=== PATIENT | female | born 1990 | race Caucasian/White ===

== ENCOUNTER 2017-06-26 17:38 | Emergency (ER) | payer SELFPAY ==
[~2017-06-26] VITALS: Ht 149.9 cm; Wt 60.9 kg
[2017-06-26] MEDS ORDERED: PNV11TAB5 PO (17:47)
[2017-06-26] MEDS ORDERED: HYDR250V7 IM (17:47)
[2017-06-26 20:36] LABS: BASOPHILS % (AUTO) 0.7 % (0.0-2.0); EOSINOPHILS % (AUTO) 1.6 % (1.0-6.0); HEMATOCRIT 35.7 % (36-46); HEMOGLOBIN 12.1 g/dL (12.0-16.0); LYMPHOCYTES # (AUTO) 2.4 K/uL (1.0-4.8); MEAN CORPUSCULAR HEMOGLOBIN 31.9 pg (26.0-34.0); MEAN CORPUSCULAR HGB CONC 33.8 G/dL (31.0-37.0); MEAN CORPUSCULAR VOLUME 94 fL (80-100); MONOCYTES # (AUTO) 0.7 K/uL (0.1-1.0); MONOCYTES % (AUTO) 7.3 % (2.0-9.0); NEUTROPHILS # (AUTO) 6.6 K/uL (1.8-7.7); NEUTROPHILS % (AUTO) 66.4 % (40.0-70.0); PLATELET COUNT (AUTO) 232 K/uL (150-450); RED BLOOD CELL COUNT(AUTO) 3.79 MIL/uL (4.00-5.20); RED CELL DISTRIBUTION WIDTH 13.3 % (11.5-14.5); WHITE BLOOD COUNT (AUTO) 9.9 K/uL (4.5-11.0)
[2017-06-26 20:42] LABS: ANION GAP 10 mmol/L (8-16); CALCIUM, TOTAL 8.5 mg/dL (8.8-10.5); CARBON DIOXIDE 25 mmol/L (22-29); CHLORIDE 102 mmol/L (98-107); CREATININE 0.47 mg/dL (0.60-1.30); GLOMERULAR FILTR. RATE CALC > 60 mL/min (>60); POTASSIUM 3.5 mmol/L (3.5-5.1); SODIUM SERUM 137 mmol/L (136-145); UREA NITROGEN, BLOOD 7 mg/dL (7-18)
[2017-06-26 20:43] LABS: APPEARANCE,URINE CLOUDY (CLEAR); GLUCOSE, URINE (UA) NEGATIVE (NEGATIVE); KETONES,URINE TRACE mg/dL (NEGATIVE); OCCULT BLOOD,URINE TRACE (NEGATIVE); PROTEIN,URINE NEGATIVE (NEGATIVE)
[2017-06-26 20:46] LABS: LEUKOCYTE ESTERASE ,URINE MODERATE (NEGATIVE)
[2017-06-26 20:47] LABS: SQUAMOUS EPITHELIAL CELL,UR Many /LPF (None Seen)
[2017-06-26 21:50] VITALS: BP 101/66
== END 2017-06-26 22:19 | disposition home or self-care (01) ==
LOC: EMS 17:39
DX: O26.892 Other specified pregnancy related conditions, second trimester (principal); R10.9 Unspecified abdominal pain; O99.332 Smoking (tobacco) complicating pregnancy, second trimester; F17.210 Nicotine dependence, cigarettes, uncomplicated; Z3A.18 18 weeks gestation of pregnancy
CPT/HCPCS: 87086; 99284

== ENCOUNTER 2017-10-05 23:08 | Observation (INO) | payer SELFPAY ==
[~2017-10-05] VITALS: Ht 152.4 cm; Wt 65.8 kg
[~2017-10-05 23:08] MED LIST: HYDR250V7 IM; PNV11TAB5 PO
[2017-10-06 00:35] VITALS: BP 89/50
[2017-10-06] MEDS ORDERED: RINGERS SOLUTION,LACTATED 1,000 ML IV ONE (01:00)
[2017-10-06] MEDS ORDERED: RINGERS SOLUTION,LACTATED 1,000 ML IV SCH (01:00)
[2017-10-06 01:25] LABS: APPEARANCE,URINE CLEAR (CLEAR); GLUCOSE, URINE (UA) NEGATIVE (NEGATIVE); KETONES,URINE NEGATIVE (NEGATIVE); LEUKOCYTE ESTERASE ,URINE MODERATE (NEGATIVE); OCCULT BLOOD,URINE MODERATE (NEGATIVE); PH,URINE 6.5 (5.0-8.0); PROTEIN,URINE NEGATIVE (NEGATIVE)
[2017-10-06 01:39] LABS: SQUAMOUS EPITHELIAL CELL,UR Few /LPF (None Seen)
== END 2017-10-06 04:33 | disposition home or self-care (01) ==
LOC: 4S 23:08
PROVIDERS: ADMIT Obstetrics & Gynecology; ATTEND Obstetrics & Gynecology
DX: O26.893 Other specified pregnancy related conditions, third trimester (principal); O99.013 Anemia complicating pregnancy, third trimester; M54.9 Dorsalgia, unspecified; R10.9 Unspecified abdominal pain; Z3A.32 32 weeks gestation of pregnancy
CPT/HCPCS: 80307 ×8; 81001; 82731; 96360; 96361; G0378 ×2; J7120

== ENCOUNTER 2021-11-15 00:38 | Emergency (ER) | payer SELFPAY ==
[~2021-11-15] VITALS: Ht 149.9 cm; Wt 60.9 kg
[2021-11-15 01:12] LABS: COVID AG,FIA SOURCE NASOPHARYNGEAL
[2021-11-15 03:14] VITALS: BP 105/60
== END 2021-11-15 03:15 | disposition home or self-care (01) ==
LOC: EMS 00:39
DX: J06.9 Acute upper respiratory infection, unspecified (principal); Z20.822 Contact with and (suspected) exposure to COVID-19
CPT/HCPCS: 99283

== ENCOUNTER 2022-12-01 13:09 | Emergency (ER) | payer MEDICAID, OTHER ==
[~2022-12-01] VITALS: Ht 149.9 cm; Wt 59.1 kg
[2022-12-01 15:06] VITALS: BP 109/65
== END 2022-12-01 17:24 | disposition left against medical advice (07) ==
LOC: EMS 13:16
DX: R07.89 Other chest pain (principal); R51.9 Headache, unspecified; Z53.21 Procedure and treatment not carried out due to patient leaving prior to being seen by health care provider
CPT/HCPCS: 93005

== ENCOUNTER 2023-06-14 20:59 | Emergency (ER) | payer MEDICAID ==
[~2023-06-14] VITALS: Ht 149.9 cm; Wt 60.0 kg
[2023-06-14 22:42] LABS: BASOPHILS % (AUTO) 0.2 % (0.0-2.0); EOSINOPHILS % (AUTO) 2.5 % (1.0-6.0); HEMATOCRIT 39.6 % (36-46); HEMOGLOBIN 13.2 g/dL (12.0-16.0); LYMPHOCYTES % (AUTO) 30.8 % (22.0-44.0); MEAN CORPUSCULAR HEMOGLOBIN 31.3 pg (26.0-34.0); MEAN CORPUSCULAR HGB CONC 33.3 G/dL (31.0-37.0); MEAN CORPUSCULAR VOLUME 94 fL (80-100); MONOCYTES # (AUTO) 0.6 K/uL (0.1-1.0); MONOCYTES % (AUTO) 6.4 % (2.0-9.0); NEUTROPHILS # (AUTO) 5.8 K/uL (1.8-7.7); NEUTROPHILS % (AUTO) 60.1 % (40.0-70.0); PLATELET COUNT (AUTO) 335 K/uL (150-450); RED BLOOD CELL COUNT(AUTO) 4.22 MIL/uL (4.00-5.20); RED CELL DISTRIBUTION WIDTH 13.5 % (11.5-14.5)
[2023-06-14 23:03] LABS: ANION GAP 10 mmol/L (8-16); CALCIUM, TOTAL 8.6 mg/dL (8.8-10.5); CARBON DIOXIDE 27 mmol/L (22-29); CHLORIDE 100 mmol/L (98-107); CREATININE 0.52 mg/dL (0.60-1.30); GLOMERULAR FILTR. RATE CALC > 60 mL/min (>60); GLUCOSE,RANDOM 97 mg/dL (70-110); POTASSIUM 3.4 mmol/L (3.5-5.1); SODIUM SERUM 137 mmol/L (136-145)
[2023-06-14 23:17] LABS: ALANINE AMINOTRANSFERASE 23 U/L (12-78); ALBUMIN 3.6 g/dL (3.4-5.0); ALKALINE PHOSPHATASE 65 U/L (46-116); ASPARTATE AMINOTRANSFERASE 18 U/L (15-37); BILIRUBIN,TOTAL 0.6 mg/dL (0.1-1.0); HCG,QUANTITATIVE < 1 mIU/mL (0-6); LIPASE 31 U/L (16-77); TOTAL PROTEIN, SERUM 6.9 g/dL (6.4-8.2)
[2023-06-14] MEDS ORDERED: KETOROLAC TROMETHAMINE 30 MG/ML VIAL IVP ONE (23:45)
[2023-06-14] MEDS ORDERED: ONDANSETRON HCL 4 MG/2 ML VIAL IVP ONE (23:45)
[2023-06-14] MEDS ORDERED: SODIUM CHLORIDE 0.9% 1,000 ML IV ONE (23:45)
[2023-06-14] MEDS ORDERED: ACETAMINOPHEN 500 MG TABLET PO ONE (23:45)
[2023-06-14] MEDS ORDERED: KETOROLAC TROMETHAMINE 15 MG/ML VIAL IVP ONE (23:45)
[2023-06-15 00:23] LABS: APPEARANCE,URINE CLEAR (CLEAR); BILIRUBIN,URINE NEGATIVE (NEGATIVE); GLUCOSE, URINE (UA) TRACE mg/dL (NEGATIVE); KETONES,URINE NEGATIVE (NEGATIVE); LEUKOCYTE ESTERASE ,URINE NEGATIVE (NEGATIVE); NITRATE,URINE NEGATIVE (NEGATIVE); OCCULT BLOOD,URINE NEGATIVE (NEGATIVE); PH,URINE 6.5 (5.0-8.0); PROTEIN,URINE NEGATIVE (NEGATIVE); SPECIFIC GRAVITIY, URINE 1.016 (1.003-1.030); UROBILINOGEN,URINE <=1.0 mg/dL (<=1.0)
[2023-06-15] MEDS ORDERED: IOHEXOL 350 MG/ML 100 ML VIAL ONE (00:38)
[2023-06-15] MEDS ORDERED: SODIUM CHLORIDE 0.9% 100 ML ONE (00:38)
[2023-06-15] MEDS ORDERED: AMOX TR/POT CLAV 875 MG/125 MG TABLET PO ONE (02:00)
[2023-06-15] MEDS ORDERED: AMOX1TAB16 PO (02:04)
[2023-06-15 03:01] VITALS: BP 119/78; PULSE 65; RESP 17; TEMP 97.3
== END 2023-06-15 03:30 | disposition home or self-care (01) ==
LOC: EMS 21:00
DX: K52.9 Noninfective gastroenteritis and colitis, unspecified (principal); Z87.891 Personal history of nicotine dependence
CPT/HCPCS: 99285; 96374; 96361; 96375; 80053; 81003; 83690; 84702; 85025; 36415; 74177; J1885; J2405; J7030; Q9967; J7050

== ENCOUNTER 2024-10-31 16:20 | Emergency (ER) | payer MEDICAID, OTHER ==
[~2024-10-31] VITALS: Ht 149.9 cm; Wt 57.3 kg
[~2024-10-31 16:20] MED LIST changes: +AMOX-457 PO; -HYDR250V7 IM; -PNV11TAB5 PO
[2024-10-31 16:25] VITALS: TEMP 98.6
[2024-10-31 16:42] LABS: APPEARANCE,URINE TURBID (CLEAR); BILIRUBIN,URINE NEGATIVE (NEGATIVE); COLOR,URINE YELLOW (YELLOW); GLUCOSE, URINE (UA) NEGATIVE (NEGATIVE); KETONES,URINE NEGATIVE (NEGATIVE); LEUKOCYTE ESTERASE ,URINE LARGE (NEGATIVE); NITRATE,URINE NEGATIVE (NEGATIVE); OCCULT BLOOD,URINE NEGATIVE (NEGATIVE); PROTEIN,URINE TRACE mg/dL (NEGATIVE); UROBILINOGEN,URINE <=1.0 mg/dL (<=1.0)
[2024-10-31 16:58] LABS: BACTERIA,URINE Few /HPF (None Seen); RBC,URINE 0-2 /HPF (0-2); SQUAMOUS EPITHELIAL CELL,UR Moderate /LPF (None Seen); WBC,URINE 26-50 /HPF (0-5)
[2024-10-31 16:59] LABS: AMORPHOUS SEDIMENT,UR Many /LPF (None Seen)
[2024-10-31] MEDS ORDERED: CEPH-558 PO (18:15)
[2024-10-31] MEDS: CEPHALEXIN MONOHYDRATE 500 MG CAPSULE PO ONE (18:17)
[2024-10-31 18:20] VITALS: BP 110/68; PULSE 70; RESP 18; O2SAT 100
== END 2024-10-31 18:24 | disposition home or self-care (01) ==
LOC: EMS 16:20
DX: N39.0 Urinary tract infection, site not specified (principal); Z87.891 Personal history of nicotine dependence; Z87.440 Personal history of urinary (tract) infections
CPT/HCPCS: 81001; 84703; 87086; 87147; 99283

== ENCOUNTER → 2025-09-27 | Emergency (ER) | payer OTHER ==
[~2025-09-27] VITALS: Ht 157.5 cm; Wt 63.4 kg
[~2025-09-27] MED LIST changes: +ACET-2247 PO; +ACET-66 PO; -AMOX-457 PO; +CEPH-558 PO; +IBUP-1492 PO; +IBUP-1493 PO; +LIDO-57 TP; +METH-659 PO; +TRAM50TA5 PO
[2025-09-27 07:52] VITALS: BP 120/65; PULSE 66; RESP 16; TEMP 98.2; O2SAT 100
[2025-09-27] MEDS: ACETAMINOPHEN 500 MG TABLET PO ONE (08:13)
[2025-09-27] MEDS: IBUPROFEN 800 MG TABLET PO ONE (08:13)
== END | disposition home or self-care (01) ==
LOC: EMS 07:46
DX: S23.3XXA Sprain of ligaments of thoracic spine, initial encounter (principal); S16.1XXA Strain of muscle, fascia and tendon at neck level, initial encounter; V49.88XA Car occupant (driver) (passenger) injured in other specified transport accidents, initial encounter; Y93.89 Activity, other specified; Y92.89 Other specified places as the place of occurrence of the external cause; Y99.8 Other external cause status
CPT/HCPCS: 72040; 72070; 72100; 99284; Z7502; Z7610

== ENCOUNTER 2025-09-29 13:47 | Emergency (ER) | payer OTHER ==
[~2025-09-29] VITALS: Ht 152.4 cm; Wt 54.5 kg
[~2025-09-29 13:47] MED LIST changes: -ACET-2247 PO; -CEPH-558 PO; -IBUP-1492 PO; -LIDO-57 TP; -TRAM50TA5 PO
[2025-09-29 13:59] VITALS: TEMP 98.3
[2025-09-29 14:08] VITALS: BP 116/79; PULSE 78; RESP 18; O2SAT 99
[2025-09-29] MEDS: SODIUM CHLORIDE 0.9% 1,000 ML IV ONE (14:33)
[2025-09-29] MEDS: FAMOTIDINE 20 MG/2 ML VIAL IVP ONE (14:33)
[2025-09-29 14:34] LABS: PLATELET COUNT (AUTO) 323 K/uL (150-450); RED BLOOD CELL COUNT(AUTO) 4.41 MIL/uL (4.00-5.20); RED CELL DISTRIBUTION WIDTH 13.3 % (11.5-14.5); WHITE BLOOD COUNT (AUTO) 9.7 K/uL (4.5-11.0)
[2025-09-29 14:41] LABS: CALCIUM, TOTAL 8.4 mg/dL (8.8-10.5); CREATININE 0.56 mg/dL (0.60-1.30); GLOMERULAR FILTR. RATE CALC > 60 mL/min (>60); GLUCOSE,RANDOM 159 mg/dL (70-110); SODIUM SERUM 138 mmol/L (136-145); UREA NITROGEN, BLOOD 7 mg/dL (7-18)
[2025-09-29 14:46] LABS: ASPARTATE AMINOTRANSFERASE 17 U/L (15-37); TOTAL PROTEIN, SERUM 6.7 g/dL (6.4-8.2)
[2025-09-29 14:56] LABS: HCG,QUANTITATIVE < 1 mIU/mL (0-6)
[2025-09-29 16:19] LABS: APPEARANCE,URINE HAZY (CLEAR); GLUCOSE, URINE (UA) NEGATIVE (NEGATIVE); LEUKOCYTE ESTERASE ,URINE LARGE (NEGATIVE); NITRATE,URINE NEGATIVE (NEGATIVE); OCCULT BLOOD,URINE TRACE (NEGATIVE); SPECIFIC GRAVITIY, URINE 1.015 (1.003-1.030)
[2025-09-29 16:34] LABS: SQUAMOUS EPITHELIAL CELL,UR Few /LPF (None Seen); YEAST,URINE Rare /HPF (None Seen)
[2025-09-29] MEDS ORDERED: SODIUM CHLORIDE 0.9% 100 ML ONE (16:38)
[2025-09-29] MEDS ORDERED: 0.9% SODIUM CHLORIDE 10 ML SYRINGE IVP ONE (16:38)
[2025-09-29] MEDS ORDERED: IOHEXOL 350 MG/ML 100 ML VIAL ONE (16:38)
[2025-09-29] MEDS: ACETAMINOPHEN 325 MG TABLET PO ONE (17:27)
[2025-09-29] MEDS ORDERED: CEPH-558 PO (18:25)
[2025-09-29] MEDS ORDERED: TRAM50TA5 PO (18:25)
[2025-09-29] MEDS ORDERED: LIDO-57 TP (18:25)
[2025-09-29] MEDS: CEPHALEXIN MONOHYDRATE 500 MG CAPSULE PO ONE (18:34)
== END 2025-09-29 18:51 | disposition home or self-care (01) ==
LOC: EMS 13:48
DX: N39.0 Urinary tract infection, site not specified (principal); R10.13 Epigastric pain; M54.2 Cervicalgia; M54.50 Low back pain, unspecified; N89.8 Other specified noninflammatory disorders of vagina; Z87.891 Personal history of nicotine dependence; Z79.899 Other long term (current) drug therapy
CPT/HCPCS: 74177; 76705; 80053; 81001; 83690; 84702; 85025; 87086; 96361; 96374; 99285; J3490; J7030; J7050; 36415-L1; 36415-TC